=== PATIENT | female | born 1985 | race Caucasian/White ===

== ENCOUNTER 2022-02-09 10:27 | Emergency (ER) | payer OTHER ==
[~2022-02-09] VITALS: Ht 149.9 cm; Wt 48.6 kg
[2022-02-09 10:28] VITALS: BP 109/54
[2022-02-09] MEDS ORDERED: ACET-2079 PO (10:58)
[2022-02-09] MEDS ORDERED: IBUP-2070 PO (10:58)
[2022-02-09] MEDS ORDERED: METH4TAB3 PO (10:58)
[2022-02-09] MEDS ORDERED: AMOX1TAB16 PO (10:58)
[2022-02-09] MEDS ORDERED: AMOX/CLAV 875/125MG TAB PO ONE (11:00)
[2022-02-09] MEDS ORDERED: HYDROCODONE/ACETAMINOPHEN 10/325 MG TAB PO ONE (11:00)
[2022-02-09] MEDS ORDERED: KETOROLAC 60 MG VIAL (30MG/ML) IM ONE (11:00)
[2022-02-09] MEDS ORDERED: DEXAMETHASONE 4 MG TAB PO SCH (11:00)
== END 2022-02-09 11:20 | disposition home or self-care (01) ==
LOC: EDH 10:27
DX: K04.7 Periapical abscess without sinus (principal); L03.211 Cellulitis of face; F17.200 Nicotine dependence, unspecified, uncomplicated; Z79.1 Long term (current) use of non-steroidal anti-inflammatories (NSAID); Z79.52 Long term (current) use of systemic steroids
CPT/HCPCS: 96372; 99284; J1885; J8540